=== PATIENT | female | born 1940 | race Caucasian/White ===

== ENCOUNTER 2017-08-20 09:00 | Outpatient (RCR) | payer MEDICARE, OTHER ==
[~2017-08-20 09:00] MED LIST: BENICAR40 MG ORAL; BYSTOLIC 10MG10 MG ORAL; MIRALAX17 G2 ORAL; NORVASC10 MG ORAL; SENNA-GEN8.6 M1 ORAL; TRAMADOL HCL50 MG ORAL; VESICARE10 MG ORAL; non
== END 2017-08-23 | disposition home or self-care (01) ==
LOC: PTY 09:00
DX: M47.892 Other spondylosis, cervical region (principal); M47.26 Other spondylosis with radiculopathy, lumbar region; M51.36 Other intervertebral disc degeneration, lumbar region; M50.30 Other cervical disc degeneration, unspecified cervical region; I10 Essential (primary) hypertension
CPT/HCPCS: 97110; 97140; 97162; G0283; G8978; G8979

== ENCOUNTER 2017-09-19 09:00 | Outpatient (RCR) | payer MEDICARE, OTHER | END 2017-09-23 | disposition home or self-care (01) | LOC: PTY 09:00 | DX: M47.892 Other spondylosis, cervical region (principal); M51.36 Other intervertebral disc degeneration, lumbar region; M47.26 Other spondylosis with radiculopathy, lumbar region; M50.30 Other cervical disc degeneration, unspecified cervical region | CPT/HCPCS: 97110; 97140; G0283; G8978; G8979 ==

== ENCOUNTER 2017-10-11 09:30 | Outpatient (RCR) | payer MEDICARE, OTHER | END 2017-10-24 | disposition home or self-care (01) | LOC: PTY 09:30 | DX: M47.892 Other spondylosis, cervical region (principal); M51.36 Other intervertebral disc degeneration, lumbar region; M47.26 Other spondylosis with radiculopathy, lumbar region; M50.30 Other cervical disc degeneration, unspecified cervical region; I10 Essential (primary) hypertension | CPT/HCPCS: 97110; 97140; G0283 ==